=== PATIENT | female | born 1990 | race Caucasian/White ===

== ENCOUNTER 2019-01-11 11:45 | Observation (INO) | payer BC ==
[2019-01-11] MEDS ORDERED: Ketorolac 30 MG/ML SDV IVPUSH ONE (13:06)
[2019-01-11] MEDS ORDERED: Ondansetron 4 MG/2 ML SDV IVPUSH PRN (13:12)
[2019-01-11] MEDS ORDERED: Acetaminophen 325 MG Tab PO PRN (13:12)
[2019-01-11] MEDS ORDERED: Sodium Chloride 0.9% 10 ML Syringe FLUSH PRN (13:12)
[2019-01-11] MEDS ORDERED: fentaNYL 100 MCG/2 ML SDV IVPUSH PRN (13:14)
[2019-01-11] MEDS ORDERED: Lactated Ringers 1,000 ML IV ONE (13:15)
[2019-01-11] MEDS ORDERED: Metoclopramide 10 MG/2 ML SDV IVPUSH PRN (13:16)
[2019-01-11] MEDS ORDERED: Lactated Ringers 1,000 ML IV SCH (14:00)
[2019-01-11] MEDS ORDERED: Cefepime 1 GM in Sodium Chloride 0.9% 50 ML IV SCH ×2 (15:15→21:00)
[2019-01-11] MEDS ORDERED: metroNIDAZOLE 250 MG Tab PO SCH (16:00)
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
[2019-01-11] MEDS ORDERED: metroNIDAZOLE 250 MG Tab PO STA (18:11)
[2019-01-11] MEDS ORDERED: metroNIDAZOLE 250 MG Tab ONE (18:47)
--- NOTE | 2019-01-13 15:12 | PCM.SN ---
- Free Text/Narrative Note: 01/11/19 Received phone call from nurses' station. Patient has not had any pain for the past 4-5 hours. She is requesting to be sent home. No clinical signs of infection/sepsis. 2nd urinalysis was collected for urine culture. Wet prep was collected and showed BV. Will treat with Flagyl x 7 days. Follow-up in clinic on Sunday. Patient discharged home with instructions to return if pain recurs or if she develops fever, chills, nausea or vomiting. Dr. Hailey Denney MD
== END 2019-01-11 18:56 | disposition home or self-care (01) ==
LOC: DL.OBCHECK 11:45 → DL.OB 13:12
PROVIDERS: ADMIT Family Medicine; ATTEND Family Medicine
DX: N23 Unspecified renal colic (principal); N76.0 Acute vaginitis; F90.9 Attention-deficit hyperactivity disorder, unspecified type; Z3A.33 33 weeks gestation of pregnancy; Z87.42 Personal history of other diseases of the female genital tract
CPT/HCPCS: 36415; 76770; 81001; 83605; 85025; 87086; 87210; 87491; 87591; A9270; J0692; J1885; J2405; J7050; J7120; 96361; 96374; 96375; G0378

== ENCOUNTER 2019-03-03 10:02 | Inpatient (IN) | payer BC ==
[~2019-03-03 10:02] MED LIST: Acetaminophen 325 MG Tab PO PRN; Carboprost Tromethamine 250 MCG/1 ML Amp IM PRN; Lactated Ringers 500 ML IV ONE; Lidocaine 1% 30 ML SDV INJECT PRN; Methylergonovine 0.2 MG/1 ML Amp IM PRN; Misoprostol 400 MCG (4 X 100 MCG TAB) RECTAL PRN; Nalbuphine 10 MG/1 ML Vial IM PRN; Nalbuphine 10 MG/1 ML Vial IV PRN; Ondansetron 4 MG/2 ML SDV IV PRN; Sodium Chloride 0.9% 10 ML Syringe FLUSH PRN; Tranexamic Acid 1,000 MG in Sodium Chloride 0.9% 100 ML IV PRN; fentaNYL 100 MCG/2 ML SDV IVPUSH PRN
[2019-03-03] MEDS: Misoprostol 25 MCG (1/4 of 100 MCG) Tab VAG PRN ×2 (11:03→14:50)
[2019-03-03] MEDS: Lactated Ringers 1,000 ML IV SCH ×3 (16:56→23:35)
[2019-03-03] MEDS: Oxytocin/Normal Saline 30 UNIT/500 ML BAG IV SCH (17:36)
[2019-03-03] MEDS ORDERED: EPINEPHrine 1 MG/1 ML Amp ONE (23:35)
[2019-03-03] MEDS ORDERED: fentaNYL 100 MCG/2 ML SDV ONE (23:35)
--- NOTE | 2019-03-03 23:50 | PCM.LDHP ---
L&D History of Present Illness - General Date of Service: 03/03/19 Admit Problem/Dx: Patient Status Order with Admit Dx/Problem 03/03/19 09:45 Patient Status [ADT] Routine Admission Diagnosis/Problem Admission Diagnosis/Problem care Source of Information: Patient History Limitations: Reports: No Limitations - History of Present Illness Introduction:: 28-year-old presenting to L&D for IOL for postdates at 40w2d. She has been feeling well. Baby has been active. Has had some intermittent [place] contractions but nothing regular. No fever or chills. No vaginal bleeding or leaking of fluid. has been complicated by nephrolithasis in early December. Symptoms have since resolved. Pain Score: 6 - Related Data Allergies/Adverse Reactions: Allergies Allergy/AdvReac Type Severity Reaction Status Date / Time No Known Allergies Allergy Verified 01/11/19 12:08 Home Medications: Home Meds Amoxicillin 500 mg PO TID 01/11/19 [History] Vit with Ca/FA/Iron [ Plus Iron] 1 tab PO DAILY 01/11/19 [ History] Past Medical History - Past Health History Medical/Surgical History: Denies Medical/Surgical History HEENT History: Reports: None Cardiovascular History: Reports: None Respiratory History: Reports: None Gastrointestinal History: Reports: None Genitourinary History: Reports: UTI, Recurrent MIS MANAGER History: Reports: Musculoskeletal History: Reports: None Neurological History: Reports: None Psychiatric History: Reports: ADHD Endocrine/Metabolic History: Reports: None Hematologic History: Reports: Anemia Immunologic History: Reports: None Oncologic (Cancer) History: Reports: None Dermatologic History: Reports: None - Infectious Disease History Infectious Disease History: Reports: None - Past Surgical History Head Surgeries/Procedures: Reports: None Social & Family History - Family History Family Medical History: Noncontributory - Tobacco Use Smoking Status *Q: Never Smoker Second Hand Smoke Exposure: No - Caffeine Use Caffeine Use: Reports: Soda - Recreational Drug Use Recreational Drug Use: No H&P Review of Systems - Review of Systems: Review Of Systems: See Below General: Reports: No Symptoms HEENT: Reports: No Symptoms Pulmonary: Reports: No Symptoms Cardiovascular: Reports: No Symptoms Gastrointestinal: Reports: No Symptoms Genitourinary: Reports: No Symptoms Musculoskeletal: Reports: No Symptoms Skin: Reports: No Symptoms L&D Exam - Exam Exam: See Below - Vital Signs Vital Signs: Last Vital Signs Temp 36.7 C 03/03/19 19:00 Pulse 85 03/03/19 19:53 Resp 18 03/03/19 19:53 BP 119/74 03/03/19 19:53 Pulse Ox Weight: 85.275 kg - OB Specific Contraction Duration (sec): 60-80 Contraction Frequency (min): 1.5-2 Contraction Intensity: Moderate to Strong Heart Tones per Min: 135 Heart Rate (FHR) Variability: Moderate (6-25 bmp) Presentation: Vertex - Saenz Score Saenz Score Cervix Position: Posterior Saenz Score Consistency: Soft Saenz Score Effacement: >80% Saenz Score Dilation: 1-2 cm Saenz Score Infant's Station: -2 Saenz Score Total: 7 - Exam General: Alert, Oriented HEENT: Conjunctiva Clear, Mucosa Moist & [place], Posterior Pharynx Clear Lungs: Clear to Auscultation, Normal Respiratory Effort Cardiovascular: Regular Rate, Regular Rhythm GI/Abdominal Exam: Soft, Non-Tender Genitourinary: Normal external exam Back Exam: Normal Inspection Extremities: Pedal Edema (Trace bilaterally) Skin: Warm, Dry, Intact - Patient Data Lab Results Last 24 hrs: Laboratory Results - last 24 hr 03/03/19 Range/Units 10:08 WBC 9.1 (5.0-10.0) 10^3/uL RBC 4.11 L (4.2-5.4) 10^6/uL Hgb 13.3 (12.0-16.0) g/dL Hct 38.4 (37.0-47.0) % MCV 93.4 (80-100) fL MCH 32.4 (27.0-34.0) pg MCHC 34.6 (33.0-35.0) g/dL Plt Count 178 (150-450) 10^3/uL Result Diagrams: 03/03/19 10:08 - Problem List (1) care in third trimester SNOMED Code(s): 718239052, 90843863, 71590560, 506249386, 814065762 ICD Code: Z34.93 - ENCNTR FOR SUPRVSN OF NORMAL PREG, UNSP, THIRD TRIMESTER Status: Acute Current Visit: Yes (2) with nephrolithiasis in third trimester SNOMED Code(s): 92482353, 22719958, 434863152 ICD Code: O26.833 - RELATED RENAL DISEASE, THIRD TRIMESTER; N20.0 - CALCULUS OF KIDNEY Status: Acute Current Visit: Yes Problem List Initiated/Reviewed/Updated: No Orders Last 24hrs: Active Orders 24 hr Category Date Time Status Patient Status [ADT] Routine ADT 03/03/19 09:45 Active Communication Order [RC] ASDIRECTED Care 03/03/19 09:45 Active Nitrous Oxide Delivery [RC] ASDIRECTED Care 03/03/19 20:11 Active Notify Provider Vital Signs OB [RC] ASDIRECTED Care 03/03/19 09:45 Active Notify Provider [RC] PRN Care 03/03/19 09:45 Active Notify Provider [RC] PRN Care 03/03/19 09:49 Active Notify Provider [RC] PRN Care 03/03/19 09:49 Active Notify Provider [RC] STAT Care 03/03/19 09:49 Active OB Discontinue Nitrous Oxide [RC] ASDIRECTED Care 03/03/19 20:11 Active POC Labs [RC] ASDIRECTED Care 03/03/19 09:45 Active Pump Management, Intrathecal [RC] ASDIRECTED Care 03/03/19 09:45 Active Up ad Maddy [RC] ASDIRECTED Care 03/03/19 09:45 Active Vaginal Exam [RC] PRN Care 03/03/19 09:49 Active Vital Signs [RC] PER UNIT ROUTINE Care 03/03/19 09:45 Active Regular Diet [DIET] Diet 03/03/19 Lunch Active Acetaminophen [Tylenol] Med 03/03/19 09:45 Active 650 mg PO Q4H PRN Carboprost Tromethamine [Hemabate DS] Med 03/03/19 09:45 Active 250 mcg IM ASDIRECTED PRN Lactated Ringers [Ringers, Lactated] 1,000 ml Med 03/03/19 09:45 Active IV ASDIRECTED Lidocaine 1% [Xylocaine-MPF 1%] Med 03/03/19 09:45 Active 30 ml INJECT ASDIRECTED PRN Methylergonovine [Methergine] Med 03/03/19 09:45 Active 0.2 mg IM ASDIRECTED PRN Nalbuphine [Nubain] Med 03/03/19 09:48 Active 10 mg IV Q3H PRN Nalbuphine [Nubain] Med 03/03/19 09:48 Active 20 mg IM Q3H PRN Ondansetron [Zofran] Med 03/03/19 09:45 Active 4 mg IV Q4H PRN Oxytocin/Normal Saline [Pitocin in NS 30 UNIT/500 ML] Med 03/03/19 10:00 Active 30 unit in 500 ml IV TITRATE Sodium Chloride 0.9% [Saline Flush] Med 03/03/19 09:45 Active 10 ml FLUSH ASDIRECTED PRN Tranexamic Acid [Cyklokapron] 1,000 mg Med 03/03/19 09:45 Active Sodium Chloride 0.9% [Normal Saline] 100 ml IV ONETIME fentaNYL [Sublimaze] Med 03/03/19 09:45 Active 50 mcg IVPUSH Q1H PRN miSOPROStoL [Cytotec] Med 03/03/19 09:49 Active 25 mcg VAG Q4H PRN miSOPROStoL [Cytotec] Med 03/03/19 09:45 Active 800 mcg RECTAL ASDIRECTED PRN Saline Lock Insert [OM.PC] Routine Oth 03/03/19 09:45 Ordered Resuscitation Status Routine Resus Stat 03/03/19 09:45 Ordered Medication Orders Acetaminophen (Tylenol) 650 mg PO Q4H PRN PRN Reason: Pain (Mild 1-3) and fever Carboprost Tromethamine (Hemabate Ds) 250 mcg IM ASDIRECTED PRN PRN Reason: HEMORRHAGE Fentanyl (Sublimaze) 50 mcg IVPUSH Q1H PRN PRN Reason: Pain (moderate 4-6) Last Admin: 03/03/19 22:54 Dose: 50 mcg Lactated Ringer's (Ringers, Lactated) 1,000 mls @ 125 mls/hr IV ASDIRECTED CHRISTIAN Last Admin: 03/03/19 23:35 Dose: 125 mls/hr Infusion: 03/03/19 23:35 Dose: 125 mls/hr Admin: 03/03/19 21:12 Dose: 125 mls/hr Infusion: 03/03/19 21:12 Dose: 125 mls/hr Admin: 03/03/19 16:56 Dose: 125 mls/hr Tranexamic Acid 1,000 mg/ (Sodium Chloride) 110 mls @ 660 mls/hr IV ONETIME PRN PRN Reason: Bleeding Oxytocin/Sodium Chloride (Pitocin In Ns 30 Unit/500 Ml) 30 unit in 500 mls @ 2 mls/hr IV TITRATE CHRISTIAN; Protocol Last Titration: 03/03/19 22:45 Dose: 2 munits/min, 2 mls/hr Titration: 03/03/19 19:00 Dose: 0 munits/min, 0 mls/hr Titration: 03/03/19 18:00 Dose: 1 munits/min, 1 mls/hr Admin: 03/03/19 17:36 Dose: 2 munits/min, 2 mls/hr Lidocaine HCl (Xylocaine-Mpf 1%) 30 ml INJECT ASDIRECTED PRN PRN Reason: Perineal Repair Methylergonovine Maleate (Methergine) 0.2 mg IM ASDIRECTED PRN PRN Reason: Hemorrhage Misoprostol (Cytotec) 800 mcg RECTAL ASDIRECTED PRN PRN Reason: Hemorrhage Misoprostol (Cytotec) 25 mcg VAG Q4H PRN PRN Reason: cervical ripening Last Admin: 03/03/19 14:50 Dose: 25 mcg Admin: 03/03/19 11:03 Dose: 25 mcg Nalbuphine HCl (Nubain) 20 mg IM Q3H PRN PRN Reason: Pain Last Admin: 03/03/19 21:34 Dose: 20 mg Nalbuphine HCl (Nubain) 10 mg IV Q3H PRN PRN Reason: Pain Ondansetron HCl (Zofran) 4 mg IV Q4H PRN PRN Reason: Nausea/Vomiting Last Admin: 03/03/19 23:22 Dose: 4 mg Sodium Chloride (Saline Flush) 10 ml FLUSH ASDIRECTED PRN PRN Reason: Keep Vein Open Assessment/Plan Comment:: 28-year-old at 40w2d admitted for IOL for postdates 1. Initiate routine intrapartum orders 2. 25 mcg Cytotec placed vaginally. Repeat every 4 hours as needed. Plan for pitocin and AROM for augmentation as indicated 3. Nubain, Nitrox and Fentanyl for pain control. Patient does desire an intrathecal when appropriate 4. Expectant management. Anticipate
--- NOTE | 2019-03-04 00:13 | PCM.PRNOTE ---
- Free Text/Narrative Note: Requested to provide analgesia to full term patient in severe pain. Upon entering the room, patient is sitting on edge of bed complaining of severe abdominal/pelvic pain and discomfort. Procedure was discussed with patient including adverse outcomes and expectations. Pt consented to analgesia, SAB/ IT. Pt placed into a proper sitting position. Landmarks for SAB/IT were identified and marked. Hands were washed and appropriate PPE was applied. Back was prepped with betadine x3. A sterile, transparent, fenestrated drape was applied. Excess betadine was removed. Using 3 mL of a 1% lidocaine solution , a skin wheel was placed at the L2/L3 interspace. A 24 ga (4 inch) Pencan spinal needle was inserted until positive for CSF. Negative for heme or paresthesias. Injected fentanyl 30 mcg, sufentanil 25 mcg, and 7.5 mg of a 0.75 % bupivacaine solution with an epi wash. Pt was placed left lateral position for approximately 20 minutes. There were zero complications or adverse outcomes. Will continue to monitor. Procedure Date & Time: 03-03-19 [id number]
[2019-03-04] MEDS: Lactated Ringers 1,000 ML IV SCH ×2 (00:24→08:00)
[2019-03-04] MEDS ORDERED: ceFAZolin 2 GM in Premix Bag 1 BAG IV ONE (01:50)
[2019-03-04] MEDS ORDERED: Citric Acid/Sodium Citrate Solution 30 ML Cup PO ONE (01:50)
--- NOTE | 2019-03-04 01:58 | PCM.PNLD ---
Labor Progress Note - VS & Meds Vital Signs: Last Vital Signs Temp 37.1 C 03/03/19 21:45 Pulse 65 03/03/19 22:30 Resp 18 03/03/19 22:30 BP 147/77 H 03/03/19 22:30 Pulse Ox Active Medications: Current Medications Acetaminophen (Tylenol) 650 mg PO Q4H PRN PRN Reason: Pain (Mild 1-3) and fever Carboprost Tromethamine (Hemabate Ds) 250 mcg IM ASDIRECTED PRN PRN Reason: HEMORRHAGE Citric Acid/Sodium Citrate (Bicitra Solution) 30 ml PO ONETIME ONE Stop: 03/04/19 01:51 Fentanyl (Sublimaze) 50 mcg IVPUSH Q1H PRN PRN Reason: Pain (moderate 4-6) Last Admin: 03/03/19 22:54 Dose: 50 mcg Lactated Ringer's (Ringers, Lactated) 1,000 mls @ 125 mls/hr IV ASDIRECTED CHRISTIAN Last Admin: 03/04/19 00:24 Dose: 125 mls/hr Tranexamic Acid 1,000 mg/ (Sodium Chloride) 110 mls @ 660 mls/hr IV ONETIME PRN PRN Reason: Bleeding Oxytocin/Sodium Chloride (Pitocin In Ns 30 Unit/500 Ml) 30 unit in 500 mls @ 2 mls/hr IV TITRATE CHRISTIAN; Protocol Last Titration: 03/04/19 01:31 Dose: 2 munits/min, 2 mls/hr Cefazolin Sodium/Dextrose 2 gm (/ Premix) 50 mls @ 100 mls/hr IV ONETIME ONE Stop: 03/04/19 02:19 Lidocaine HCl (Xylocaine-Mpf 1%) 30 ml INJECT ASDIRECTED PRN PRN Reason: Perineal Repair Methylergonovine Maleate (Methergine) 0.2 mg IM ASDIRECTED PRN PRN Reason: Hemorrhage Misoprostol (Cytotec) 800 mcg RECTAL ASDIRECTED PRN PRN Reason: Hemorrhage Misoprostol (Cytotec) 25 mcg VAG Q4H PRN PRN Reason: cervical ripening Last Admin: 03/03/19 14:50 Dose: 25 mcg Nalbuphine HCl (Nubain) 20 mg IM Q3H PRN PRN Reason: Pain Last Admin: 03/03/19 21:34 Dose: 20 mg Nalbuphine HCl (Nubain) 10 mg IV Q3H PRN PRN Reason: Pain Ondansetron HCl (Zofran) 4 mg IV Q4H PRN PRN Reason: Nausea/Vomiting Last Admin: 03/03/19 23:22 Dose: 4 mg Sodium Chloride (Saline Flush) 10 ml FLUSH ASDIRECTED PRN PRN Reason: Keep Vein Open Discontinued Medications Epinephrine HCl (Adrenalin) Confirm Administered Dose 1 mg .ROUTE .STK-MED ONE Stop: 03/03/19 23:36 Fentanyl (Sublimaze) Confirm Administered Dose 100 mcg .ROUTE .STK-MED ONE Stop: 03/03/19 23:36 Lactated Ringer's (Ringers, Lactated) 500 mls @ 999 mls/hr IV .BOLUS ONE Stop: 03/03/19 10:15 Sufentanil Citrate (Sufenta) Confirm Administered Dose 50 mcg .ROUTE .STK-MED ONE Stop: 03/03/19 23:36 - Uterine Contractions Uterine Monitoring Mode: External [place] Contraction Frequency (min): 1.5-2 Contraction Duration (sec): 60-80 Contraction Intensity: Moderate to Strong Uterine Resting Tone: Soft - Monitoring Heart Rate (FHR) Variability: Moderate (6-25 bmp) Accelerations: Present, 15x15 Decelerations: Variable, Prolonged (>2x10 min), Recurrent (>50% x 20 min) Strip Review: Category II - Vaginal Exam Dilation (cm): 3.5 Effacement (Percent): 90 Station: 0 Cervical Position: Midposition Sterile Vaginal Exam Performed By: Hailey Denney - Labor Progress (Free Text) Labor Progress: After receiving her intrathecal around 2300, FHT demonstrated recurrent prolonged decelerations into the 60s-90s, lasting 30 - 90 seconds. This gradually improved with fluid bolus and repositioning multiple times. Pitocin was stopped as soon as decelerations were noted. Baby was allowed to recover for over an hour. Pitocin was restarted and increased to 2 units. Recurrent decelerations into the 60-90s again were noted. Pitocin was discontinued and FHT improved somewhat; however recurrent variable decelerations are still present. Cervix was noted to be unchanged from 2300 at 0145. Due to failure to progress and intolerance of labor, the decision was made to proceed with section. Risks were reviewed with the patient and her , including but not limited to infection, bleeding, damage to surrounding internal organs, injury to baby, etc. Written consents were signed. Will proceed with primary section as soon as OR is ready. Hailey Denney MD
[2019-03-04] MEDS ORDERED: Oxytocin/Normal Saline 60 UNIT/1,000 ML BAG ONE (02:11)
[2019-03-04] MEDS: Oxytocin/Normal Saline 30 UNIT/500 ML BAG IV SCH (03:59)
[2019-03-04] MEDS ORDERED: Acetaminophen/oxyCODONE 325-5 MG Tab PO PRN ×2 (04:04)
[2019-03-04] MEDS ORDERED: ePHEDrine 50 MG/ML SDV IVPUSH PRN (04:04)
[2019-03-04] MEDS ORDERED: Naloxone 2 MG/2 ML Syringe IVPUSH PRN (04:04)
[2019-03-04] MEDS ORDERED: diphenhydrAMINE 50 MG/ML SDV IVPUSH PRN (04:04)
[2019-03-04] MEDS ORDERED: Citric Acid/Sodium Citrate Solution 30 ML Cup ONE (06:06)
[2019-03-04] MEDS: Simethicone 80 MG Tab.Chew PO SCH ×4 (12:49→22:48)
[2019-03-04] MEDS: Prenatal Multivitamin with Calcium/Folic Acid/Iron Tab PO SCH (12:49)
[2019-03-04] MEDS: Ketorolac 30 MG/ML SDV IVPUSH SCH ×3 (12:51→22:47)
--- NOTE | 2019-03-04 13:01 | PCM.PRNOTE ---
- Free Text/Narrative Note: Section Operative Report Date of Surgery: 03/04/2019 Surgeon: Hailey Denney MD Dog Races Manager: Nohemi Bazan MD Pre-Operative Diagnosis: at 40w3d Failure to progress in the first stage of labor intolerance of labor Post-Operative Diagnosis: Same Procedure Performed: Primary low transverse section Anesthesia: Spinal EBL: 600 mL IVF: 1200 mL Drains: Zuleta catheter with 250 mL of urine output Specimens: Placenta Complications: None apparent Findings: Normal uterus, tubes, and ovaries. Indication and Consent: During labor the heart tracing began to show signs of developing hypoxemia. Conservative measures of oxygen supplementation and position changes did not relieve these findings. The oxytocin was discontinued. status improved but due to inability to increase contraction strength without causing distress and failure of labor progress, the decision was made to proceed with section. The patient understood that the risks of section include, but are not limited to, visceral or vascular injury, infection, blood loss and need for blood transfusion, prolonged hospitalization , and reoperation. The patient stated understanding and desired to proceed. All questions were answered. Procedure in Detail: The patient was taken to the operating room. Spinal anesthesia was provided. Zuleta catheter and pneumoboots were placed. She was then prepped and draped in routine fashion in dorsal supine position with a left mike tilt. Two grams of cefazolin (Ancef) were given for infection prophylaxis. A Pfannenstiel skin incision was made with a scalpel and carried down to the fascia. The fascia was incised and extended laterally. The rectus musculature was in the midline down to the level of the pubic symphysis. The peritoneum was found to be free of adherent bowel or bladder tissue and entered bluntly. The peritoneal opening was then extended superiorly and inferiorly to the bladder reflection with good visualization of the bladder. The Addison retractor was placed. Brief intraabdominal survey revealed scant, clear peritoneal fluid and thinned-out lower uterine segment. The bladder blade was positioned to keep the bladder out of the operative field. The lower uterine segment was incised with a scalpel. The amniotic sac was ruptured with an Allis clamp and clear fluid was noted. The uterine incision was extended bluntly with lateral and upward traction. The fetus was in vertex position. The head was elevated out of the maternal pelvis with special attention paid to avoid using the uterine incision as a fulcrum. Gentle fundal pressure was applied once the head was brought into the incision. The was delivered with moderate difficulty. Kiwi vacuum was applied to head to facilitate delivery. Bulb suctioning of the 's nose and mouth was performed on the operative field. The cord was clamped and cut in standard fashion, and the was handed over to the awaiting nursery staff. required intensive resuscitation with Apgars of 2, 5, and 7 at 1 , 5 and 10 minutes respectively. IV oxytocin was initiated to facilitate uterine contractions. The placenta was delivered intact with manual message of the uterine fundus along with gentle cord traction. The inside of the uterus was gently wiped with a lap sponge to assure complete removal of remaining products of conception. The uterine incision was closed with 0 -Vicryl suture in a running locked fashion. A second imbricating layer of 0-Vicryl was also placed. The incision was inspected and hemostasis achieved. The ovaries and tubes were visualized and found to be normal. The blood clots and fluid were wiped out of the abdomen and pelvis with moist laparotomy sponges. The Addison retractor was removed. The uterine incision was re-inspected along with all other incised surfaces and good hemostasis was confirmed. The peritoneus was then closed using 2-0 V[employer]. The fascia was then closed with 2-0 looped PDS suture with care not to include any underlying abdominal contents. The skin was closed with 3-0 suture on a Shashank needle in a subcuticular fashion. Dressing was applied. Sponge and instrument counts were reported as correct times two. Patient tolerated procedure well and was taken to PACU in stable condition. Hailey Denney MD
--- NOTE | 2019-03-04 13:01 | PCM.DEL ---
L & D Note - General Info Date of Service: 03/04/19 Mother's Due Date: 03/01/19 - Delivery Note Labor: Augmented by ARM, Augmented by Oxytocin Cervical Ripening Method: Misoprostil Delivery Outcome: Livebirth Infant Delivery Method: Primary Delivery Mode: Vacuum Extraction Presentation: Vertex Nuchal Cord: None Anesthesia Type: Intrathecal, Spinal Amniotic Fluid Description: Clear Episiotomy Type: None Laceration: None Placenta: Manual Removal Cord: 3 Vessels Estimated Blood Loss: 600 Resuscitation Needed: Yes Provider: Hailey Denney Score 1 min: 2 Score 5 min: 5 Score 10 min: 7 Post Delivery Events: Unplanned Delivery Comments (Free Text/Narrative):: Please see procedure note for details Induction Criteria - Saenz Score Saenz Score Dilation: 1-2 cm Saenz Score Effacement: >80% Saenz Score Infant's Station: -2 Saenz Score Consistency: Soft Saenz Score Cervix Position: Posterior Saenz Score Total: 7 Saenz Score Presenting Part: Reports: Cephalic - Induction Gestational Age >/= 39 wks: Yes Estimated Pelvis: Reports: Adequate Reassuring Monitoring Strip: Yes Absence of Tachy Systole: Yes - Augmentation Estimated Pelvis: Reports: Adequate Weight Estimated:: Reports: AGA Reassuring Monitoring Strip: Yes Absence of Tachy Systole: Yes - General Info Date of Service: 03/04/19 - Patient Data Vitals - Most Recent: Last Vital Signs Temp 36.9 C 03/04/19 12:00 Pulse 83 03/04/19 08:00 Resp 16 03/04/19 12:00 BP 128/74 03/04/19 12:00 Pulse Ox 99 03/04/19 12:00 Weight - Most Recent: 85.275 kg I&O - Last 24 Hours: Intake & Output 03/03/19 03/04/19 03/04/19 22:59 06:59 14:59 Intake Total 520 Output Total 100 Balance 420 Lab Results Last 24 Hours: Laboratory Results - last 24 hr 03/03/19 Range/Units 10:08 Blood Type O POSITIVE Gel Antibody Screen Negative Med Orders - Current: Current Medications Acetaminophen (Tylenol) 650 mg PO Q4H PRN PRN Reason: Pain (Mild 1-3) and fever Carboprost Tromethamine (Hemabate Ds) 250 mcg IM ASDIRECTED PRN PRN Reason: HEMORRHAGE Diphenhydramine HCl (Benadryl) 25 mg IVPUSH Q6H PRN PRN Reason: Itching or Nausea Docusate Sodium (Colace) 100 mg PO Q12H PRN PRN Reason: Constipation Ephedrine Sulfate (Ephedrine Sulfate) 5 mg IVPUSH SEECOMMENT PRN PRN Reason: Other Lactated Ringer's (Ringers, Lactated) 1,000 mls @ 125 mls/hr IV ASDIRECTED [facility] Last Admin: 03/04/19 00:24 Dose: 125 mls/hr Tranexamic Acid 1,000 mg/ (Sodium Chloride) 110 mls @ 660 mls/hr IV ONETIME PRN PRN Reason: Bleeding Oxytocin/Sodium Chloride (Pitocin In Ns 30 Unit/500 Ml) 30 unit in 500 mls @ 2 mls/hr IV TITRATE [facility]; Protocol Last Admin: 03/04/19 03:59 Dose: 2 munits/min, 2 mls/hr Ibuprofen (Motrin) 800 mg PO Q8H PRN PRN Reason: mild pain or fever Ketorolac Tromethamine (Toradol) 15 mg IVPUSH Q6H [facility] Stop: 03/04/19 21:31 Last Admin: 03/04/19 12:51 Dose: 15 mg Methylergonovine Maleate (Methergine) 0.2 mg IM ASDIRECTED PRN PRN Reason: Hemorrhage Misoprostol (Cytotec) 800 mcg RECTAL ASDIRECTED PRN PRN Reason: Hemorrhage Naloxone HCl (Narcan) 0.1 mg IVPUSH SEECOMMENT PRN PRN Reason: Respiratory Depression Ondansetron HCl (Zofran) 4 mg IV Q4H PRN PRN Reason: Nausea/Vomiting Last Admin: 03/03/19 23:22 Dose: 4 mg Oxycodone/Acetaminophen (Percocet 325-5 Mg) 1 tab PO Q4H PRN PRN Reason: Pain (moderate 4-6) Oxycodone/Acetaminophen (Percocet 325-5 Mg) 2 tab PO Q4H PRN PRN Reason: Pain (moderate 4-6) Prenat Multivit/Load Out Worker/Iron/Folic Ac ( Plus Iron) 1 each PO DAILY [facility] Last Admin: 03/04/19 12:49 Dose: Not Given Simethicone (Simethicone) 160 mg PO QID [facility] Last Admin: 03/04/19 12:49 Dose: Not Given Sodium Chloride (Saline Flush) 10 ml FLUSH ASDIRECTED PRN PRN Reason: Keep Vein Open Discontinued Medications Citric Acid/Sodium Citrate (Bicitra Solution) 30 ml PO ONETIME ONE Stop: 03/04/19 01:51 Last Admin: 03/04/19 02:09 Dose: 30 ml Citric Acid/Sodium Citrate (Bicitra Solution) Confirm Administered Dose 30 ml .ROUTE .STK-MED ONE Stop: 03/04/19 06:07 Last Admin: 03/04/19 02:30 Dose: 30 ml Epinephrine HCl (Adrenalin) Confirm Administered Dose 1 mg .ROUTE .STK-MED ONE Stop: 03/03/19 23:36 Last Admin: 03/04/19 09:59 Dose: Not Given Fentanyl (Sublimaze) 50 mcg IVPUSH Q1H PRN PRN Reason: Pain (moderate 4-6) Last Admin: 03/03/19 22:54 Dose: 50 mcg Fentanyl (Sublimaze) Confirm Administered Dose 100 mcg .ROUTE .STK-MED ONE Stop: 03/03/19 23:36 Last Admin: 03/04/19 10:00 Dose: Not Given Lactated Ringer's (Ringers, Lactated) 500 mls @ 999 mls/hr IV .BOLUS ONE Stop: 03/03/19 10:15 Last Admin: 03/04/19 10:01 Dose: Not Given Cefazolin Sodium/Dextrose 2 gm (/ Premix) 50 mls @ 100 mls/hr IV ONETIME ONE Stop: 03/04/19 02:19 Last Admin: 03/04/19 02:45 Dose: 100 mls/hr Oxytocin/Sodium Chloride (Pitocin In Ns 30 Unit/500 Ml) Confirm Administered Dose 60 unit in 1,000 mls @ as directed .ROUTE .STK-MED ONE Stop: 03/04/19 02:12 Lidocaine HCl (Xylocaine-Mpf 1%) 30 ml INJECT ASDIRECTED PRN PRN Reason: Perineal Repair Misoprostol (Cytotec) 25 mcg VAG Q4H PRN PRN Reason: cervical ripening Last Admin: 03/03/19 14:50 Dose: 25 mcg Nalbuphine HCl (Nubain) 20 mg IM Q3H PRN PRN Reason: Pain Last Admin: 03/03/19 21:34 Dose: 20 mg Nalbuphine HCl (Nubain) 10 mg IV Q3H PRN PRN Reason: Pain Sufentanil Citrate (Sufenta) Confirm Administered Dose 50 mcg .ROUTE .STK-MED ONE Stop: 03/03/19 23:36 Last Admin: 03/04/19 10:00 Dose: Not Given - Problem List & Annotations (1) care in third trimester SNOMED Code(s): 598295572, 66693962, 77979009, 201360252, 766001282 Code(s): Z34.93 - ENCNTR FOR SUPRVSN OF NORMAL PREG, UNSP, THIRD TRIMESTER Status: Acute (2) with nephrolithiasis in third trimester SNOMED Code(s): 67280339, 50117972, 592479818 Code(s): O26.833 - RELATED RENAL DISEASE, THIRD TRIMESTER; N20.0 - CALCULUS OF KIDNEY Status: Acute (3) Status post repeat low transverse section SNOMED Code(s): 134811733, 55874979, 329482916, 952557251, 542381560 Code(s): Z98.891 - HISTORY OF UTERINE SCAR FROM PREVIOUS SURGERY Status: Acute - Problem List Review Problem List Initiated/Reviewed/Updated: Yes - My Orders Last 24 Hours: My Active Orders 03/04/19 01:51 RT Incentive Spirometry [RC] ASDIRECTED Schedule Procedure [COMM] Per Unit Routine 03/04/19 04:04 Communication Order [RC] PER UNIT ROUTINE Communication Order [RC] Per Unit Routine Intake and Output [RC] 06,14,22 Notify Provider Intake and Out [RC] ASDIRECTED Notify Provider Vital Signs OB [RC] ASDIRECTED RT Incentive Spirometry [RC] Q2HWA Urinary Catheter Removal [RC] 0600 Vital Signs [RC] 00,04,08,12,16,20 Consult to Toolroom Helper [CONS] Routine Acetaminophen/oxyCODONE [Percocet 325-5 MG] 1 tab PO Q4H PRN Acetaminophen/oxyCODONE [Percocet 325-5 MG] 2 tab PO Q4H PRN Docusate Sodium [Colace] 100 mg PO Q12H PRN Naloxone [Narcan] 0.1 mg IVPUSH SEECOMMENT PRN diphenhydrAMINE [Benadryl] 25 mg IVPUSH Q6H PRN ePHEDrine [ePHEDrine sulfate] 5 mg IVPUSH SEECOMMENT PRN Antiembolic Hose [OM.PC] Per Unit Routine Assess Lochia [WOMSER] Per Unit Routine Assess Uterine Involution [WOMSER] Per Unit Routine Breast Pump [WOMSER] Per Unit Routine Sequential Compression Device [OM.PC] Per Unit Routine 03/04/19 04:05 Antiembolic Devices [RC] 08,20 03/04/19 09:00 Vit with Ca/FA/Iron [ Plus Iron] 1 each PO DAILY Simethicone 160 mg PO QID 03/04/19 09:30 Ketorolac [Toradol] 15 mg IVPUSH Q6H 03/04/19 Breakfast Nothing Per Oral Diet [DIET] 03/04/19 Dinner Nothing Per Oral Diet [DIET] 03/04/19 Lunch Nothing Per Oral Diet [DIET] 03/05/19 05:30 Ibuprofen [Motrin] 800 mg PO Q8H PRN 03/05/19 06:00 CBC W/O DIFF,HEMOGRAM [HEME] Routine - Assessment Assessment:: 28-year-old now status post primary section for failure to progress and intolerance of labor - Plan Plan:: 1. Initiate routine postoperative cares 2. Plans to breastfeed 3. Repeat CBC tomorrow 4. Anticipate discharge 03/07/19 Hailey Dennye MD
[2019-03-04] MEDS ORDERED: Oxytocin/Normal Saline 30 UNIT/500 ML BAG IV ONE ×2 (13:02→13:03)
[2019-03-04] MEDS ORDERED: Lactated Ringers 1,000 ML IV ONE (13:20)
[2019-03-04] MEDS ORDERED: Ketorolac 30 MG/ML SDV IVPUSH ONE (13:20)
[2019-03-04] MEDS ORDERED: Morphine PF 1 MG/ML Amp ONE (13:20)
[2019-03-04] MEDS ORDERED: fentaNYL 100 MCG/2 ML SDV ITHECAL ONE (13:21)
[2019-03-04] MEDS ORDERED: EPINEPHrine 1 MG/1 ML Amp ONE (13:21)
[2019-03-04] MEDS: Docusate Sodium 100 MG Cap PO PRN (22:47)
[2019-03-04] MEDS ORDERED: hydrOXYzine HCl 25 MG Tab PO PRN ×2 (22:50→22:55)
[2019-03-05] MEDS ORDERED: Ibuprofen 800 MG Tab PO PRN (05:30)
--- NOTE | 2019-03-05 09:03 | PCM.DCSUM1 ---
Discharge Summary - Hospital Course Free Text/Narrative:: 28-year-old POD#1 status post primary section for failure to progress in the first stage of labor and intolerance of labor Diagnosis: Stroke: No - Discharge Data Discharge Date: 03/05/19 Discharge Disposition: Home, Self-Care 01 Condition: Good - Referral to Home Health Primary Care Physician: Espinoza Denney MD - Discharge Diagnosis/Problem(s) (1) care in third trimester SNOMED Code(s): 431497037, 99286967, 06317708, 304584583, 535552291 ICD Code: Z34.93 - ENCNTR FOR SUPRVSN OF NORMAL PREG, UNSP, THIRD TRIMESTER Status: Acute (2) with nephrolithiasis in third trimester SNOMED Code(s): 80670591, 37335588, 488055232 ICD Code: O26.833 - RELATED RENAL DISEASE, THIRD TRIMESTER; N20.0 - CALCULUS OF KIDNEY Status: Acute (3) Status post section SNOMED Code(s): 080571029, 727809873 ICD Code: Z98.891 - HISTORY OF UTERINE SCAR FROM PREVIOUS SURGERY Status: Acute - Patient Summary/Data Operative Procedure(s) Performed: Primary low transverse section Complications: None Consults: Consultations 03/04/19 04:04 Consult to Elementary School Librarian [CONS] Routine Labs Pending at D/C: None Recommended Follow-up Testing/Procedures: None Planned Operative Procedure(s) after DC: None Hospital Course: See subjective section - Patient Instructions Diet: Usual Diet as Tolerated Activity: As Tolerated, No Lifting Over 20 Pounds Driving: Do Not Drive (while taking pain medication) Showering/Bathing: May Shower Wound/Incision Care: Keep Operative Site/Wound Site Clean and Dry Notify Provider of: Fever, Increased Pain, Swelling and Redness, Drainage, Nausea and/or Vomiting - Discharge Plan *PRESCRIPTION DRUG MONITORING PROGRAM REVIEWED*: Not Applicable *COPY OF PRESCRIPTION DRUG MONITORING REPORT IN PATIENT YOMAIRA: Not Applicable Home Medications: Home Meds Vit with Ca/FA/Iron [ Plus Iron] 1 tab PO DAILY 01/11/19 [ History] Acetaminophen [Tylenol] 650 mg PO Q4H PRN tablet 03/05/19 [Rx] Acetaminophen/oxyCODONE [Percocet 325-5 MG] 1 tab PO Q4H PRN tablet 03/05/19 [ Rx] Docusate Sodium [Colace] 100 mg PO Q12H PRN cap 03/05/19 [Rx] Ibuprofen [Motrin] 800 mg PO Q8H PRN tablet 03/05/19 [Rx] Patient Handouts: Baby Blues, Care After Delivery, SIDS Prevention Information, [id number] Referrals: Hailey Denney MD [Primary Care Provider] - (6-8 weeks for visit) - Discharge Summary/Plan Comment DC Time >30 min.: No Discharge Summary/Plan Comment: As patient's baby was transferred to NICU yesterday for hypoglycemia, will plan for discharge today. Will send with prescription for Percocet. Advised patient that she must rest often. Reasons to present to clinic or ED were reviewed with patient and her , and all questions were answered. - General Info Date of Service: 03/05/19 Subjective Update: POD#1. Doing well. Tolerating a general diet. Zuleta removed this morning and has voided. Passing gas but has not yet had a bowel movement. Has been out of bed--no dizziness or lightheadedness. No fever or chills. Baby breastfed well before transfer. Currently pumping. No drainage noted on dressing. Infant transferred to [facility] ([facility]) for persistent hypoglycemia Functional Status: Reports: Pain Controlled, Tolerating Diet, Ambulating, Urinating. Denies: New Symptoms - Review of Systems General: Reports: No Symptoms HEENT: Reports: No Symptoms Pulmonary: Reports: No Symptoms Cardiovascular: Reports: No Symptoms Gastrointestinal: Reports: No Symptoms Genitourinary: Reports: No Symptoms Musculoskeletal: Reports: No Symptoms Skin: Reports: No Symptoms Neurological: Reports: No Symptoms - Patient Data Vitals - Most Recent: Last Vital Signs Temp 36.6 C 03/05/19 04:00 Pulse 91 03/05/19 04:00 Resp 18 03/05/19 04:00 BP 118/76 03/05/19 04:00 Pulse Ox 98 03/05/19 04:00 Weight - Most Recent: 85.275 kg I&O - Last 24 hours: Intake & Output 03/04/19 03/05/19 03/05/19 22:59 06:59 14:59 Output Total 1800 1200 Balance -1800 -1200 Lab Results - Last 24 hrs: Laboratory Results - last 24 hr 03/05/19 Range/Units 06:10 WBC 8.9 (5.0-10.0) 10^3/uL RBC 2.93 L (4.2-5.4) 10^6/uL Hgb 9.7 L D (12.0-16.0) g/dL Hct 28.4 L (37.0-47.0) % MCV 96.9 D (80-100) fL MCH 33.1 (27.0-34.0) pg MCHC 34.2 (33.0-35.0) g/dL Plt Count 138 L (150-450) 10^3/uL Med Orders - Current: Current Medications Acetaminophen (Tylenol) 650 mg PO Q4H PRN PRN Reason: Pain (Mild 1-3) and fever Last Admin: 03/04/19 22:47 Dose: 650 mg Carboprost Tromethamine (Hemabate Ds) 250 mcg IM ASDIRECTED PRN PRN Reason: HEMORRHAGE Diphenhydramine HCl (Benadryl) 25 mg IVPUSH Q6H PRN PRN Reason: Itching or Nausea Docusate Sodium (Colace) 100 mg PO Q12H PRN PRN Reason: Constipation Last Admin: 03/04/19 22:47 Dose: 100 mg Ephedrine Sulfate (Ephedrine Sulfate) 5 mg IVPUSH SEECOMMENT PRN PRN Reason: Other Hydroxyzine HCl (Atarax) 25 mg PO ONETIME PRN PRN Reason: Anxiety Last Admin: 03/04/19 23:11 Dose: 25 mg Lactated Ringer's (Ringers, Lactated) 1,000 mls @ 125 mls/hr IV ASDIRECTED [facility] Last Admin: 03/04/19 08:00 Dose: 125 mls/hr Tranexamic Acid 1,000 mg/ (Sodium Chloride) 110 mls @ 660 mls/hr IV ONETIME PRN PRN Reason: Bleeding Oxytocin/Sodium Chloride (Pitocin In Ns 30 Unit/500 Ml) 30 unit in 500 mls @ 2 mls/hr IV TITRATE [facility]; Protocol Last Admin: 03/04/19 03:59 Dose: 2 munits/min, 2 mls/hr Ibuprofen (Motrin) 800 mg PO Q8H PRN PRN Reason: mild pain or fever Methylergonovine Maleate (Methergine) 0.2 mg IM ASDIRECTED PRN PRN Reason: Hemorrhage Misoprostol (Cytotec) 800 mcg RECTAL ASDIRECTED PRN PRN Reason: Hemorrhage Naloxone HCl (Narcan) 0.1 mg IVPUSH SEECOMMENT PRN PRN Reason: Respiratory Depression Ondansetron HCl (Zofran) 4 mg IV Q4H PRN PRN Reason: Nausea/Vomiting Last Admin: 03/03/19 23:22 Dose: 4 mg Oxycodone/Acetaminophen (Percocet 325-5 Mg) 1 tab PO Q4H PRN PRN Reason: Pain (moderate 4-6) Oxycodone/Acetaminophen (Percocet 325-5 Mg) 2 tab PO Q4H PRN PRN Reason: Pain (moderate 4-6) Last Admin: 03/05/19 04:53 Dose: 2 tab Prenat Multivit/[place]/Iron/Folic Ac ( Plus Iron) 1 each PO DAILY [facility] Last Admin: 03/04/19 12:49 Dose: Not Given Simethicone (Simethicone) 160 mg PO QID [facility] Last Admin: 03/04/19 22:48 Dose: 160 mg Sodium Chloride (Saline Flush) 10 ml FLUSH ASDIRECTED PRN PRN Reason: Keep Vein Open Discontinued Medications Citric Acid/Sodium Citrate (Bicitra Solution) 30 ml PO ONETIME ONE Stop: 03/04/19 01:51 Last Admin: 03/04/19 02:09 Dose: 30 ml Citric Acid/Sodium Citrate (Bicitra Solution) Confirm Administered Dose 30 ml .ROUTE .STK-MED ONE Stop: 03/04/19 06:07 Last Admin: 03/04/19 02:30 Dose: 30 ml Epinephrine HCl (Adrenalin) Confirm Administered Dose 1 mg .ROUTE .STK-MED ONE Stop: 03/03/19 23:36 Last Admin: 03/04/19 09:59 Dose: Not Given Epinephrine HCl (Adrenalin) 0.1 mg .XX .STK-MED ONE Stop: 03/04/19 13:22 Fentanyl (Sublimaze) 50 mcg IVPUSH Q1H PRN PRN Reason: Pain (moderate 4-6) Last Admin: 03/03/19 22:54 Dose: 50 mcg Fentanyl (Sublimaze) Confirm Administered Dose 100 mcg .ROUTE .STK-MED ONE Stop: 03/03/19 23:36 Last Admin: 03/04/19 10:00 Dose: Not Given Fentanyl (Sublimaze) 30 mcg ITHECAL .STK-MED ONE Stop: 03/04/19 13:22 Hydroxyzine HCl (Atarax) 50 mg PO ONETIME PRN PRN Reason: Anxiety Lactated Ringer's (Ringers, Lactated) 500 mls @ 999 mls/hr IV .BOLUS ONE Stop: 03/03/19 10:15 Last Admin: 03/04/19 10:01 Dose: Not Given Cefazolin Sodium/Dextrose 2 gm (/ Premix) 50 mls @ 100 mls/hr IV ONETIME ONE Stop: 03/04/19 02:19 Last Admin: 03/04/19 02:45 Dose: 100 mls/hr Oxytocin/Sodium Chloride (Pitocin In Ns 30 Unit/500 Ml) Confirm Administered Dose 60 unit in 1,000 mls @ as directed .ROUTE .STK-MED ONE Stop: 03/04/19 02:12 Oxytocin/Sodium Chloride (Pitocin In Ns 30 Unit/500 Ml) 30 unit in 500 mls @ as directed IV .STK-MED ONE Stop: 03/04/19 13:03 Oxytocin/Sodium Chloride (Pitocin In Ns 30 Unit/500 Ml) 30 unit in 500 mls @ as directed IV .STK-MED ONE Stop: 03/04/19 13:04 Lactated Ringer's (Ringers, Lactated) 1,000 mls @ as directed IV .STK-MED ONE Stop: 03/04/19 13:21 Ketorolac Tromethamine (Toradol) 15 mg IVPUSH Q6H [facility] Stop: 03/04/19 21:31 Last Admin: 03/04/19 22:47 Dose: 15 mg Ketorolac Tromethamine (Toradol) 30 mg IVPUSH .STK-MED ONE Stop: 03/04/19 13:21 Lidocaine HCl (Xylocaine-Mpf 1%) 30 ml INJECT ASDIRECTED PRN PRN Reason: Perineal Repair Misoprostol (Cytotec) 25 mcg VAG Q4H PRN PRN Reason: cervical ripening Last Admin: 03/03/19 14:50 Dose: 25 mcg Morphine Sulfate (Duramorph Pf) 0.2 mg .XX .STK-MED ONE Stop: 03/04/19 13:21 Nalbuphine HCl (Nubain) 20 mg IM Q3H PRN PRN Reason: Pain Last Admin: 03/03/19 21:34 Dose: 20 mg Nalbuphine HCl (Nubain) 10 mg IV Q3H PRN PRN Reason: Pain Sufentanil Citrate (Sufenta) Confirm Administered Dose 50 mcg .ROUTE .STK-MED ONE Stop: 03/03/19 23:36 Last Admin: 03/04/19 10:00 Dose: Not Given Sufentanil Citrate (Sufenta) 25 mcg ITHE[facility] .STK-MED ONE Stop: 03/04/19 13:22 - Exam General: Reports: Alert, Oriented Lungs: Reports: Clear to Auscultation, Normal Respiratory Effort Cardiovascular: Reports: Regular Rate, Regular Rhythm, No Murmurs GI/Abdominal Exam: Soft, Non-Tender Back Exam: Reports: Normal Inspection Extremities: Pedal Edema (2+ bilaterally) Skin: Reports: Warm, Dry, Intact Wound/Incisions: Reports: Healing Well, Dressing Dry and Intact
[2019-03-05] MEDS: Prenatal Multivitamin with Calcium/Folic Acid/Iron Tab PO SCH (09:24)
[2019-03-05] MEDS: Simethicone 80 MG Tab.Chew PO SCH (09:24)
[2019-03-05] MEDS: Docusate Sodium 100 MG Cap PO PRN (09:25)
== END 2019-03-05 12:15 | disposition home or self-care (01) | DRG 540 ==
LOC: DL.OBCHECK 10:02 → DL.OB 10:03 → OBSVTOIN 03-04 03:01 → DL.MS 03-05 09:03
PROVIDERS: ADMIT Family Medicine; ATTEND Family Medicine
PROC: 10D00Z1 Extraction of Products of Conception, Low, Open Approach (ICD-10-PCS; principal; 2019-03-04)
PROC: 10907ZC Drainage of Amniotic Fluid, Therapeutic from Products of Conception, Via Natural or Artificial Opening (ICD-10-PCS; 2019-03-04)
PROC: 3E0P7VZ Introduction of Hormone into Female Reproductive, Via Natural or Artificial Opening (ICD-10-PCS; 2019-03-04)
PROC: 3E033VJ Introduction of Other Hormone into Peripheral Vein, Percutaneous Approach (ICD-10-PCS; 2019-03-04)
DX: O48.0 Post-term pregnancy (principal); O99.02 Anemia complicating childbirth; O99.89 Other specified diseases and conditions complicating pregnancy, childbirth and the puerperium; N20.0 Calculus of kidney; O76 Abnormality in fetal heart rate and rhythm complicating labor and delivery; Z3A.40 40 weeks gestation of pregnancy; Z37.0 Single live birth; Z79.899 Other long term (current) drug therapy; D64.9 Anemia, unspecified
CPT/HCPCS: 36415; 51702; 83986; 85027; 86850; 86900; 86901; 94010; A9270-GY; J0171; J0690; J1885; J2274; J2300; J2405; J2590; J3010; J7120